=== PATIENT | male | born 1960 | race Caucasian/White ===

== ENCOUNTER 2016-08-07 19:30 | Emergency (ER) | payer OTHER ==
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
[~2016-08-07 19:30] MED LIST: HALDOL PO; LEVAQUIN PO; LEVAQUIN750 MG PO; MULTI-DAY1 TAB PO; NORCO 10-325 TA1 TAB PO; NORCO1 TAB 10/3 PO; PRILOSEC20 MG PO; ZOFRAN PO; ZYVOX600 MG PO
[2016-08-07 19:47] LABS: BASOPHIL% 0.2 % (0-2.5); EOSINOPHIL# 0.1 X10e3 (0-0.7); EOSINOPHIL% 1.5 % (0.0-7.0); HEMATOCRIT 46.4 % (38.0-50.0); HEMOGLOBIN 15.8 gm/dL (13.0-16.0); LYMPHOCYTE# 3.9 X10e3 (1.0-3.5); LYMPHOCYTE% 46.6 % (17.0-45.0); MEAN CELL VOLUME 99.9 FL (83-96); MEAN PLATELET VOLUME 8.7 FL (6.5-11.5); MONOCYTE# 0.6 X10e3 (0-1.0); MONOCYTE% 7.6 % (3.0-12.0); NEUTROPHIL# 3.7 X10e3 (1.5-7.1); NEUTROPHIL% 44.1 % (40-75); PLATELET COUNT 188 X10e3 (140-420); RED BLOOD COUNT 4.64 X10e (3.90-5.60); RED CELL DISTRIBUTION WIDTH 14.5 % (11.0-15.5); WHITE BLOOD COUNT 8.4 X10e3 (4.0-10.5)
[2016-08-07 19:48] LABS: POC - CKMB 7.4 ng/mL (0.0-7.9); POC - TROPONIN <0.05 ng/mL (<=0.05)
[2016-08-07 19:49] LABS: DIFF IND NO
[2016-08-07 20:03] LABS: INR 1.1; PROTHROMBIN TIME (PATIENT) 11.7 SECONDS (9.6-11.5)
[2016-08-07 20:32] LABS: ALBUMIN SERUM 3.7 g/dL (3.5-5.0); ALKALINE PHOSPHATASE 145 U/L (32-92); ALT (SGPT) 237 U/L (10-40); AST (SGOT) 320 U/L (10-42); BILIRUBIN, DIRECT 0.3 mg/dL (0.0-0.2); BILIRUBIN,INDIRECT 0.6 mg/dL (0.0-0.9); BILIRUBIN,TOTAL 0.9 mg/dL (0.2-2.0); BLOOD UREA NITROGEN 9 mg/dL (9-23); CALCIUM SERUM 8.6 mg/dL (8.4-10.2); CARBON DIOXIDE 26 mmol/L (22-31); CHLORIDE 111 mmol/L (100-111); GLOM FILT RATE Estimated ABOVE60 mL/min (>60); GLUCOSE FASTING 85 mg/dL (70-110); POTASSIUM 3.9 mmol/L (3.5-5.1); PROTEIN TOTAL SERUM 8.9 g/dL (6.0-8.3); SODIUM 145 mmol/L (135-145)
[2016-08-07 20:35] LABS: ALCOHOL BLOOD 303 mg/dL (0)
[2016-08-07 20:42] LABS: AMPHETAMINE NEG (NEG); BARBITURATES NEG (NEG); BENZODIAZEPINES NEG (NEG); COCAINE POS (NEG); MARIJUANA NEG (NEG); OPIATES NEG (NEG); TRICYCLIC ANTIDEPRESSANTS NEG (NEG); U METHADONE NEG (NEG)
== END 2016-08-08 03:35 | disposition home or self-care (01) ==
LOC: CED 19:30
PROVIDERS: Emergency Medicine
DX: F10.129 Alcohol abuse with intoxication, unspecified (principal); S00.83XA Contusion of other part of head, initial encounter
CPT/HCPCS: 36415; 70450; 70486; 71010; 72125; 72170; 80048; 80076; 80307; 82553; 82947; 84484; 85025; 85610; 90471; 90715; 99283; 99284; G0480; J3411; J3475

== ENCOUNTER 2016-09-19 21:51 | Emergency (ER) | payer OTHER ==
--- NOTE | ~2016-09-19 | EKG ---
PATIENT: JOHANNA AKBAR UNIT #: [id number] Ventricular Rate: 53 BPM Atrial Rate: 53 BPM P-R Interval: 170 ms QRS Duration: 128 ms Q-T Interval: 422 ms QTC Calculation(Bezet): 395 ms P [place]: 64 degrees Calculated R [place]: 10 degrees Calculated T [place]: 10 degrees Diagnosis Line: Sinus bradycardia Diagnosis Line: Normal ECG Diagnosis Line: When compared with ECG of 18-JUL-2016 21:59, Diagnosis Line: No significant change was found Diagnosis Line: Confirmed by JOSE FRANCISCO FREEDMAN MD ([id number]) on 09/20/2016 Diagnosis Line: 6:33:59 AM INTERPRETING MD: TANO JETER
[2016-09-19 20:10] LABS: BASOPHIL% 0.4 % (0-2.5); EOSINOPHIL% 0.7 % (0.0-7.0); HEMATOCRIT 40.3 % (38.0-50.0); HEMOGLOBIN 13.3 gm/dL (13.0-16.0); LYMPHOCYTE# 2.7 X10e3 (1.0-3.5); LYMPHOCYTE% 44.7 % (17.0-45.0); MEAN CELL VOLUME 101.8 FL (83-96); MEAN CORPUSCULAR HEMOGLOBIN 33.6 PG (28-34); MEAN PLATELET VOLUME 8.9 FL (6.5-11.5); MONOCYTE# 0.7 X10e3 (0-1.0); MONOCYTE% 11.2 % (3.0-12.0); NEUTROPHIL# 2.6 X10e3 (1.5-7.1); PLATELET COUNT 105 X10e3 (140-420); RED BLOOD COUNT 3.96 X10e (3.90-5.60); RED CELL DISTRIBUTION WIDTH 15.6 % (11.0-15.5)
[2016-09-19 20:11] LABS: DIFF IND NO
[2016-09-19 20:47] LABS: ALBUMIN SERUM 3.5 g/dL (3.5-5.0); BILIRUBIN, DIRECT 0.4 mg/dL (0.0-0.2); BILIRUBIN,INDIRECT 0.5 mg/dL (0.0-0.9); BILIRUBIN,TOTAL 0.9 mg/dL (0.2-2.0); BUN/CREATININE RATIO 13.75; CALCIUM SERUM 8.5 mg/dL (8.4-10.2); CREATININE SERUM 0.8 mg/dL (0.6-1.4); GLOM FILT RATE Estimated 101.3 mL/min (>60); POTASSIUM 3.8 mmol/L (3.5-5.1); PROTEIN TOTAL SERUM 7.9 g/dL (6.0-8.3)
[2016-09-19 21:01] LABS: URINE SOURCE CLEAN CATCH
[2016-09-19 21:12] LABS: URINE APPEARANCE CLEAR; URINE BILIRUBIN NEG (NEG); URINE BLOOD NEG (NEG); URINE COLOR YELLOW; URINE GLUCOSE NEG (NEG); URINE KETONE NEG (NEG); URINE LEUKOCYTE ESTERASE NEG (NEG); URINE NITRATE NEG (NEG); URINE PH 5.5 (5-8); URINE PROTEIN NEG (NEG); URINE SPECIFIC GRAVITY 1.003 (1.003-1.035)
[2016-09-19 21:16] LABS: CULTURE INDICATED? NO
[2016-09-19 21:21] LABS: AMPHETAMINE NEG (NEG); BARBITURATES NEG (NEG); BENZODIAZEPINES NEG (NEG); COCAINE NEG (NEG); MARIJUANA NEG (NEG); OPIATES NEG (NEG); TRICYCLIC ANTIDEPRESSANTS NEG (NEG); U METHADONE NEG (NEG)
== END 2016-09-20 07:57 | disposition home or self-care (01) ==
LOC: CED 21:51
PROVIDERS: Emergency Medicine
DX: F10.129 Alcohol abuse with intoxication, unspecified (principal); K70.10 Alcoholic hepatitis without ascites; F31.9 Bipolar disorder, unspecified; Z79.899 Other long term (current) drug therapy; Y90.8 Blood alcohol level of 240 mg/100 ml or more
CPT/HCPCS: 36415; 80048; 80076; 80307; 81003; 82947; 85025; 93005; 96361; 96374; 99284; G0480; J2310

== ENCOUNTER 2016-10-01 20:42 | Emergency (ER) | payer OTHER ==
--- NOTE | ~2016-10-01 | EKG ---
PATIENT: JOHANNA AKBAR UNIT #: [id number] Ventricular Rate: 49 BPM Atrial Rate: 49 BPM P-R Interval: 162 ms QRS Duration: 120 ms Q-T Interval: 454 ms QTC Calculation(Bezet): 410 ms P [place]: 66 degrees Calculated R [place]: 12 degrees Calculated T [place]: 14 degrees Diagnosis Line: Sinus bradycardia Diagnosis Line: Borderline ECG Diagnosis Line: When compared with ECG of 19-SEP-2016 19:30, Diagnosis Line: No significant change was found Diagnosis Line: Confirmed by JOSE FRANCISCO FREEDMAN MD ([id number]) on 10/02/2016 Diagnosis Line: 10:36:30 PM INTERPRETING MD: TANO JETER
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
[2016-10-01 21:02] LABS: BASOPHIL% 0.9 % (0-2.5); EOSINOPHIL% 0.9 % (0.0-7.0); HEMATOCRIT 41.5 % (38.0-50.0); HEMOGLOBIN 13.8 gm/dL (13.0-16.0); LYMPHOCYTE# 1.8 X10e3 (1.0-3.5); LYMPHOCYTE% 34.2 % (17.0-45.0); MEAN CORPUSCULAR HEMOGLOBIN 33.8 PG (28-34); MEAN CORPUSCULAR HGB CONC 33.1 g/dL (30-36); MEAN PLATELET VOLUME 8.3 FL (6.5-11.5); MONOCYTE# 0.7 X10e3 (0-1.0); MONOCYTE% 12.7 % (3.0-12.0); NEUTROPHIL# 2.7 X10e3 (1.5-7.1); NEUTROPHIL% 51.3 % (40-75); PLATELET COUNT 143 X10e3 (140-420); RED BLOOD COUNT 4.07 X10e (3.90-5.60); RED CELL DISTRIBUTION WIDTH 15.9 % (11.0-15.5); WHITE BLOOD COUNT 5.2 X10e3 (4.0-10.5)
[2016-10-01 21:03] LABS: DIFF IND NO
[2016-10-01 21:30] LABS: ALBUMIN SERUM 3.4 g/dL (3.5-5.0); BILIRUBIN, DIRECT 0.7 mg/dL (0.0-0.2); BILIRUBIN,INDIRECT 0.6 mg/dL (0.0-0.9); BILIRUBIN,TOTAL 1.3 mg/dL (0.2-2.0)
[2016-10-01 21:39] LABS: AMPHETAMINE NEG (NEG); BARBITURATES NEG (NEG); BENZODIAZEPINES NEG (NEG); COCAINE NEG (NEG); MARIJUANA NEG (NEG); OPIATES NEG (NEG); TRICYCLIC ANTIDEPRESSANTS NEG (NEG); U METHADONE NEG (NEG)
[2016-10-01 22:49] LABS: CALCIUM SERUM 8.5 mg/dL (8.4-10.2); CREATININE SERUM 1.1 mg/dL (0.6-1.4); GLOM FILT RATE Estimated 75.7 mL/min (>60); POTASSIUM 3.7 mmol/L (3.5-5.1)
== END 2016-10-02 06:42 ==
LOC: CED 20:42
PROVIDERS: Emergency Medicine
DX: S00.81XA Abrasion of other part of head, initial encounter (principal); F10.129 Alcohol abuse with intoxication, unspecified; R45.851 Suicidal ideations; I10 Essential (primary) hypertension; J44.9 Chronic obstructive pulmonary disease, unspecified; F17.200 Nicotine dependence, unspecified, uncomplicated; X58.XXXA Exposure to other specified factors, initial encounter; Y92.89 Other specified places as the place of occurrence of the external cause
CPT/HCPCS: 36415; 70450; 72125; 80048; 80076; 80307; 83690; 85025; 93005; 96360; 99284; G0480

== ENCOUNTER 2016-10-02 07:34 | Inpatient (IN) | payer MEDICARE, OTHER ==
--- NOTE | ~2016-10-02 | PN ---
Unit #: [id number] #: [id number] Patient: JOHANNA KEATING [id number] [facility] [address] [place] [address] [id number] I MR#: [id number] NAME: JOHANNA KEATING ROOM: P214 Age: 56 Sex: M Admission Date: 10/02/2016 : 1960 Attending Physician: Js Smith M.D. Admitting Physician: Js Smith M.D. Primary Care Physician: Primary Care Physician Harriet POPE PROGRESS NOTES DATE OF SERVICE 10/06/2016 DISCUSSION Mr. Keating is a 56-year-old white male who was seen today. Chart was reviewed and case was discussed with the staff. He has been anxious though appears to be doing better and seems to be coming out of the detox without any complications. He has been polite and pleasant and cooperative with treatment recommendations and has been taking the medications and tolerating them fairly well. MENTAL STATUS EXAMINATION Middle-aged white male who is casually dressed with fair personal hygiene, appears to be in no acute distress or discomfort. He was awake and alert on interaction with intact orientation. His mood is anxious with congruent affect. He denies any suicidal or homicidal ideations. His insight and judgment remain slightly impaired. TREATMENT PLAN 1. We will continue him on his current medications and treatment protocol. We will monitor his response to the medications and make further adjustments as needed. 2. We will continue to follow up. Dictated by... Js Smith M.D. IAA/bzg TD: 10/07/2016 11:45 JOB #: [id number] Unit #: [id number] #: [id number] Patient: JOHANNA KEATING TOSHIA PROGRESS NOTES Page 1 of 1 X Js Smith MD PROGRESS NOTE
--- NOTE | ~2016-10-02 | DS ---
Unit #: [id number] #: [id number] [facility]: [facility]ATING [id number] [facility] [address] [place] [address] [id number] I MR#: [id number] NAME: JOHANNA KEATING ROOM: [facility] Age: 56 Sex: M Admission Date: 10/02/2016 : 1960 Discharge Date: 10/08/2016 Attending Physician: Js Smith M.D. Primary Care Physician: Primary Care Physician No DISCHARGE SUMMARY IDENTIFYING DATA Mr. Keating is a 56-year-old single white male, who is a resident [place], [place], and is known to us from previous encounter and was self-referred to the hospital on a voluntary basis. DISCHARGE DIAGNOSES Psychiatric: Major depressive disorder, recurrent, moderate, without psychotic features; alcohol dependence, moderate and acute withdrawals; opioid dependence, moderate. Medical: Hypertension. Stressors: Moderate psychosocial stressors. HISTORY OF PRESENT ILLNESS Please see initial psychiatric evaluation for details. PAST PSYCHIATRIC HISTORY Please see initial psychiatric evaluation for details. PAST MEDICAL HISTORY Please see initial psychiatric evaluation for details. HOSPITAL COURSE The patient was admitted to the adult chemical dependency unit at [facility] yaritza Rudolph and was oriented to the hospital environment. Routine p.r.n. medications were initiated, and he was started on the detox protocol and was closely monitored. He was taking the medications regularly and was tolerating them fairly well and was able to show a decent and therapeutic response and was willing to continue treatment on an outpatient basis and as such, it was decided that he will be discharged home and will continue treatment on an outpatient basis. DISCHARGE MEDICATIONS None. DISCHARGE CONDITION Stable. PROGNOSIS Fair. Dictated by... Js Smith M.D. Unit #: [id number] #: [id number] Patient: JOHANNA KEATING IAA/modl TD: 10/08/2016 22:52 JOB #: [id number] DISCHARGE SUMMARY Page 1 of 1 X Js Smith MD DISCHARGE SUMMARY
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
--- NOTE | ~2016-10-02 | PN ---
Unit #: [id number] #: [id number] Patient: JOHANNA KEATING [id number] [facility] [address] [place] [address] [id number] I MR#: [id number] NAME: JOHANNA KEATING ROOM: P214 Age: 56 Sex: M Admission Date: 10/02/2016 : 1960 Attending Physician: Js Smith M.D. Admitting Physician: Js Smith M.D. Primary Care Physician: Primary Care Physician Harriet LOPEZ NOTES DATE OF SERVICE 10/03/2016 DISCUSSION Mr. Keating is a 56-year-old white male who was seen today. Chart was reviewed and case was discussed with the staff. He has been anxious, withdrawn, and seclusive to himself and was seen to be unkempt, disheveled, and reports persistent depressive symptoms with feelings of hopelessness. Meanwhile, he has been taking the medications and tolerating them fairly well with no reported side effects. MENTAL STATUS EXAMINATION Middle-aged white male who was casually dressed with fair personal hygiene, appears to be in no acute distress or discomfort. He was awake and alert on interaction with intact orientation. His mood was anxious with congruent affect. His speech is slow and goal-directed. He denies any suicidal or homicidal ideations and also denies any auditory or visual hallucinations. His insight and judgment remain slightly impaired. TREATMENT PLAN 1. We will continue him on his current medications and treatment protocol. We will monitor his response to the medications and make further adjustments as needed. 2. We will continue to follow up. Dictated by... Charity Poe/lyle TD: 10/04/2016 11:04 JOB #: [id number] Unit #: [id number] #: [id number] Patient: JOHANNA KEATING [place] LOPEZ NOTES Page 1 of 1 X Js Smith MD PROGRESS NOTE
--- NOTE | ~2016-10-02 | PN ---
Unit #: [id number] #: [id number] Patient: JOHANNA KEATING [id number] [facility] [address] [place] [address] [id number] I MR#: [id number] NAME: JOHANNA KEATING ROOM: P214 Age: 56 Sex: M Admission Date: 10/02/2016 : 1960 Attending Physician: Js Smith M.D. Admitting Physician: Js Smith M.D. Primary Care Physician: Primary Care Physician Harriet POPE PROGRESS NOTES DATE OF SERVICE: 10/05/2016 SUBJECTIVE Mr. Keating is a 56-year-old white male who was seen today and chart was reviewed, and case was discussed with the staff. He has been anxious, withdrawn, and rather seclusive to himself. Meanwhile, he has been cooperative with treatment recommendations and has been taking the medications and tolerating them fairly well. MENTAL STATUS EXAMINATION Middle-aged white male who was casually dressed with fair personal hygiene, appears to be in no acute distress or discomfort. He was awake and alert on interaction with intact orientation. His mood was anxious with a congruent affect. He denies any suicidal or homicidal ideation. His insight and judgment remain slightly impaired. TREATMENT PLAN 1. We will continue him on his current medications and treatment protocol. We will monitor his response to medications and make further adjustments as needed. 2. We will continue to follow up. Dictated by... Charity Poe/felecial TD: 10/06/2016 13:10 JOB #: [id number] [facility] PROGRESS NOTES Page 1 of 1 X Js Smith MD PROGRESS NOTE
--- NOTE | ~2016-10-02 | HP ---
Unit #: [id number] #: [id number] Patient: JOHANNA AKBAR [id number] [facility] [address] [place] [address] [id number] MR#: [id number] NAME: JOHANNA AKBAR ROOM: P214 Age: 56 Sex: M Admission Date: 10/02/2016 : 1960 Attending Physician: Js Smith M.D. Admitting Physician: Js Smith M.D. Primary Care Physician: Primary Care Physician No HISTORY AND PHYSICAL HISTORY OF PRESENT ILLNESS Johanna is a 56 year old, admitted to [address] [place] [address] because of his continued abuse of alcohol. He has had numerous admissions to this facility for the same. PAST MEDICAL HISTORY 1. Long history of polysubstance abuse to include alcohol and IV drugs. 2. History of withdrawal seizures. 3. Hepatitis C. 4. High blood pressure. 5. Hyperlipidemia. PAST SURGICAL HISTORY Right knee. ALLERGIES No known drug allergies. SOCIAL HISTORY He does not smoke, drinks alcohol frequently and has a long history of illicit substance abuse to include IV drugs. FAMILY HISTORY Medically noncontributory. REVIEW OF SYSTEMS CONSTITUTIONAL: No fever or chills. HEENT: Denies any sore throat, ear pain or runny nose. CARDIOVASCULAR: Denies chest pain, irregular heart rhythm or palpitations. CHEST: Denies shortness of breath or cough. No hemoptysis. GASTROINTESTINAL: Denies nausea, vomiting, diarrhea or chronic constipation. ENDOCRINE: Denies history of increased thirst or urination. No recent significant weight loss or gain. GENITOURINARY: Denies dysuria, frequency, or hematuria. SKIN: Denies any rashes. HEMATOLOGIC: Denies history of increased bleeding or bruising. MUSCULOSKELETAL: Denies any hot, swollen joints. No generalized muscle pain. NEUROLOGIC: Denies problems with vision or speech. No frequent, severe headaches. No numbness, tingling or weakness in any extremities. Denies loss of bladder or bowel control. CURRENT MEDICATIONS Unit #: [id number] #: [id number] Patient: JOHANNA AKBAR 1. Milk of magnesia p.r.n. 2. Maalox p.r.n. 3. Tylenol p.r.n. 4. Multivitamin one daily 5. Nicotine patch 14 mg daily 6. Protonix 40 mg daily PHYSICAL EXAMINATION GENERAL: Alert, well-nourished, no apparent distress. VITAL SIGNS: Blood pressure 110/52, heart rate 80, respirations 16, and temperature 98.6. WEIGHT: 215 pounds. HEIGHT: 5 feet 7 inches. SKIN: Warm and dry without rash or lesion. HEENT: Normocephalic. TMs not viewed. Oral and nasal passages clear. Conjunctivae clear. PERRLA. EOMs intact. NECK: Supple without lymphadenopathy or thyromegaly. HEART: Regular rate and rhythm without murmur. LUNGS: Clear. ABDOMEN: Soft, nontender. : Not done. EXTREMITIES: No evidence of cyanosis, clubbing or edema. Moves all without focal deficit. NEUROLOGICAL: Grossly within normal limits. Cranial Nerves: II: Visual pantoja are intact. III, IV AND : Extraocular movements are intact. Pupils are equal, round and reactive to light. V: Facial sensation is grossly normal. VII: Facial movements and expression are normal. VIII: Auditory acuity grossly intact. IX, X: Uvula is midline. Phonation is normal. XI: Patient shrugs shoulders and turns head normally. XII: Tongue protrudes in the midline. Sensory and Motor Function: Sensory and motor sensation is grossly normal. Motor: moves all extremities well. Coordination: Gait is normal. Deep Tendon Reflexes: Intact. IMPRESSION Psychiatric admission. RECOMMENDATIONS Psychiatric, per psychiatrist. MEDICAL I see no contraindications to participating in facility's activities. MEDICAL PROGNOSIS Good. MEDICAL CONDITION Stable. Dictated by... Claudette Brower P.A.-C. for Charity Carroll/juma Unit #: [id number] #: [id number] Patient: JOHANNA AKBAR TD: 10/03/2016 06:23 JOB #: [id number] HISTORY AND PHYSICAL Page 1 of 1 X Claudette Brower HISTORY AND PHYSICAL
--- NOTE | ~2016-10-02 | PN ---
Unit #: [id number] #: [id number] Patient: JOHANNA KEATING [id number] [facility] [address] [place] [address] [id number] MR#: [id number] NAME: JOHANNA KEATING ROOM: P214 Age: 56 Sex: M Admission Date: 10/02/2016 : 1960 Attending Physician: Js Smith M.D. Admitting Physician: Js Smith M.D. Primary Care Physician: Primary Care Physician Harriet POPE PROGRESS NOTES DATE 10/03/2016 DISCUSSION Mr. Keating is a 56-year-old white male who was seen today and chart was reviewed and case was discussed with the staff. He has been anxious, withdrawn and rather seclusive to himself. Meanwhile, he has been cooperative with treatment recommendations and has been taking medications and tolerating them fairly well with no reported side effects. MENTAL STATUS EXAMINATION Middle-aged white male who was casually dressed with fair personal hygiene and appears to be in no acute distress or discomfort. He was awake and alert on interaction with intact orientation. His mood was anxious with congruent affect. He denies any suicidal or homicidal ideations. His insight and judgement remains slightly impaired. TREATMENT PLAN 1. Will continue his current treatment protocol and will monitor his response to the medications and make further adjustments as needed. 2. Will continue to follow up. Dictated by... Charity Poe/venkatesh TD: 10/03/2016 18:32 JOB #: [id number] Unit #: [id number] #: [id number] Patient: JOHANNA KEATING [place] PROGRESS NOTES Page 1 of 1 X Js Smith MD X PROGRESS NOTE
--- NOTE | ~2016-10-02 | CO ---
Unit #: [id number] #: [id number] Patient: JOHANNA AKBAR [id number] [facility] [address] [place] [address] [id number] I MR#: [id number] NAME: JOHANNA AKBAR ROOM: [facility] Age: 56 Sex: M Admission Date: 10/02/2016 : 1960 Attending Physician: Js Smith M.D. Primary Care Physician: Primary Care Physician No Consultation Date: 10/06/2016 CONSULTATION REPORT Medical consult was requested by Dr. Smith. HISTORY OF PRESENT ILLNESS Johanna has complaints of sores on his left and right feet on the tops of his toes, balls of his feet that he first noticed a few weeks ago. He is homeless and has very poor fitting shoes. He reports having multiple holes in his shoes. His shoes are frequently wet. No pain or other complaints. PHYSICAL EXAMINATION CARDIAC: Regular rate and rhythm. No murmurs, gallops, or rubs. RESPIRATORY: Clear to auscultation bilaterally. SKIN: Multiple 5 mm to 1 cm abrasions on toes in various stages of healing. ASSESSMENT AND PLAN Skin abrasions. These abrasions most likely caused by poor fitting shoes. The patient was instructed to keep feet very clean and dry, and we will begin bacitracin ointment t.i.d. 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 Dictated by... Natacha Vergara A.P.R.N. for Charity Carroll/lj TD: 10/06/2016 18:36 JOB #: [id number] CONSULTATION REPORT Page 1 of 1 X NATACHA ORTEGA APRN CONSULTATION REPORT
--- NOTE | ~2016-10-02 | PN ---
Unit #: [id number] #: [id number] Patient: JOHANNA KEATING [id number] [facility] [address] [place] [address] [id number] I MR#: [id number] NAME: JOHANNA KEATING ROOM: P214 Age: 56 Sex: M Admission Date: 10/02/2016 : 1960 Attending Physician: Js Smith M.D. Admitting Physician: Js Smith M.D. Primary Care Physician: Primary Care Physician Harriet POPE PROGRESS NOTES DATE October 07, 2016 DISCUSSION Mr. Kaeting is a 56-year-old white male, who was seen today and chart was reviewed and the case was discussed with the staff. He has been anxious, withdrawn, but has not shown any agitation or irritability, and he has been cooperative with the treatment recommendations. He has been taking the medications and tolerating them fairly well with no reported side effects. MENTAL STATUS EXAMINATION Middle-aged white male, who was casually dressed with fair personal hygiene and appears to be in no acute distress or discomfort. He was awake and alert on interaction with intact orientation. His mood is anxious with a congruent affect. His speech is slow and goal-directed. He denies any suicidal or homicidal ideations. His insight and judgment remain slightly impaired. TREATMENT PLAN 1. We will continue him on his current medications and treatment protocol, and will monitor his response to the medications, and make further adjustments as needed. 2. We will continue to followup. Dictated by... Charity Poe/juma TD: 10/08/2016 05:25 JOB #: [id number] Unit #: [id number] #: [id number] Patient: JOHANNA KEATING PROGRESS NOTES Page 1 of 1 X Js Smith MD PROGRESS NOTE
== END 2016-10-08 15:30 | disposition home or self-care (01) | DRG 885 ==
LOC: P1S 07:34 → P2S 13:51
PROC: HZ2ZZZZ Detoxification Services for Substance Abuse Treatment (ICD-10-PCS; principal; 2016-10-02)
DX: F33.1 Major depressive disorder, recurrent, moderate (principal); F11.20 Opioid dependence, uncomplicated; I10 Essential (primary) hypertension; F10.239 Alcohol dependence with withdrawal, unspecified; Z59.0 Homelessness; E78.5 Hyperlipidemia, unspecified; B19.20 Unspecified viral hepatitis C without hepatic coma; S90.812A Abrasion, left foot, initial encounter; S90.811A Abrasion, right foot, initial encounter
CPT/HCPCS: 86592

== ENCOUNTER 2016-10-16 21:03 | Emergency (ER) | payer SELFPAY | END 2016-10-17 03:06 | disposition home or self-care (01) | LOC: CED 21:03 | DX: F10.129 Alcohol abuse with intoxication, unspecified (principal); J44.9 Chronic obstructive pulmonary disease, unspecified; F17.200 Nicotine dependence, unspecified, uncomplicated | CPT/HCPCS: 99282 ==

== ENCOUNTER 2016-11-12 22:48 | Emergency (ER) | payer SELFPAY | END 2016-11-13 07:57 | disposition home or self-care (01) | LOC: CED 22:48 | DX: F10.129 Alcohol abuse with intoxication, unspecified (principal) | CPT/HCPCS: 99283; G0480 ==

== ENCOUNTER 2016-12-01 16:35 | Emergency (ER) | payer SELFPAY | END 2016-12-01 19:00 | disposition left against medical advice (07) | LOC: CED 16:35 | DX: Z53.21 Procedure and treatment not carried out due to patient leaving prior to being seen by health care provider (principal) ==

== ENCOUNTER 2016-12-02 23:22 | Emergency (ER) | payer SELFPAY ==
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
== END 2016-12-03 07:08 | disposition home or self-care (01) ==
LOC: CED 23:22
DX: S06.0X9A Concussion with loss of consciousness of unspecified duration, initial encounter (principal); I10 Essential (primary) hypertension; F17.200 Nicotine dependence, unspecified, uncomplicated; W22.8XXA Striking against or struck by other objects, initial encounter; Y93.89 Activity, other specified; Y92.410 Unspecified street and highway as the place of occurrence of the external cause
CPT/HCPCS: 36415; 70450; 70486; 72125; 99284; G0480

== ENCOUNTER 2016-12-10 23:13 | Emergency (ER) | payer SELFPAY | END 2016-12-11 16:10 | disposition HOOLOP | LOC: CED 23:13 | DX: F10.229 Alcohol dependence with intoxication, unspecified (principal); Y90.8 Blood alcohol level of 240 mg/100 ml or more; F33.9 Major depressive disorder, recurrent, unspecified; I10 Essential (primary) hypertension; J44.9 Chronic obstructive pulmonary disease, unspecified; F17.200 Nicotine dependence, unspecified, uncomplicated | CPT/HCPCS: 36415; 99285; G0480 ==

== ENCOUNTER 2016-12-11 11:02 | Inpatient (IN) | payer MEDICARE ==
--- NOTE | ~2016-12-11 | PN ---
Unit #: [id number] #: [id number] Patient: JOHANNA KEATING [id number] [facility] [address] [place] [address] [id number] I MR#: [id number] NAME: JOHANNA KEATING ROOM: [facility] Age: 56 Sex: M Admission Date: 12/11/2016 : 1960 Attending Physician: Js Smith M.D. Admitting Physician: Js Smith M.D. Primary Care Physician: Primary Care Physician Harriet POPE PROGRESS NOTES DATE December 15, 2016 DISCUSSION Mr. Keating is a 56-year-old white male, who was seen today and chart was reviewed and the case was discussed with the staff. He has been anxious, withdrawn, and rather seclusive to himself. Meanwhile, he has been cooperative with the treatment recommendations and he has been taking the medications and tolerating them fairly well with no reported side effects. MENTAL STATUS EXAMINATION Middle-aged white male, who was casually dressed with fair personal hygiene and appears to be in no acute distress or discomfort. He was awake and alert with intact orientation. His mood is anxious with a congruent affect. He denies any suicidal or homicidal ideations. His insight and judgment remain slightly impaired. TREATMENT PLAN 1. We will continue him on his current treatment protocol, and will monitor his response to the medications, and make further adjustments as needed. 2. We will continue to followup. Dictated by... Charity Poe/juma TD: 12/16/2016 09:31 JOB #: [id number] Unit #: [id number] #: [id number] Patient: JOHANNA KEATING KAYDAVID PROGRESS NOTES Page 1 of 1 X Js Smith MD X PROGRESS NOTE
--- NOTE | ~2016-12-11 | HP ---
Unit #: [id number] #: [id number] Patient: JOHANNA AKBAR [id number] [place] [address] [id number] I MR#: [id number] NAME: JOHANNA AKBAR ROOM: 86 Age: 56 Sex: M Admission Date: 12/11/2016 : 1960 Attending Physician: Js Smith M.D. Admitting Physician: Js Smith M.D. Primary Care Physician: Primary Care Physician No HISTORY AND PHYSICAL HISTORY OF PRESENT ILLNESS Johanna is a 56 year old admitted to [facility] because of his continued polysubstance abuse. PAST MEDICAL HISTORY 1. Long history of illicit substance abuse to include IV drugs. 2. Alcohol abuse. 3. History of withdrawal seizures. 4. Hepatitis C. 5. High blood pressure. 6. Hyperlipidemia. PAST SURGICAL HISTORY 1. Right knee. 2. 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 ALLERGIES No known drug allergies. SOCIAL HISTORY He does not smoke. Drinks alcohol frequently, has a long history of illicit substance abuse to include IV drugs. FAMILY HISTORY Medically noncontributory. REVIEW OF SYSTEMS CONSTITUTIONAL: No fever or chills. HEENT: Denies any sore throat, ear pain or runny nose. CARDIOVASCULAR: Denies chest pain, irregular heart rhythm or palpitations. CHEST: Denies shortness of breath or cough. No hemoptysis. GASTROINTESTINAL: Denies nausea, vomiting, diarrhea or chronic constipation. ENDOCRINE: Denies history of increased thirst or urination. No recent significant weight loss or gain. GENITOURINARY: Denies dysuria, frequency, or hematuria. SKIN: Denies any rashes. HEMATOLOGIC: Denies history of increased bleeding or bruising. MUSCULOSKELETAL: Denies any hot, swollen joints. No generalized muscle pain. NEUROLOGIC: Denies problems with vision or speech. No frequent, severe headaches. No numbness, tingling or weakness in any extremities. Denies loss of bladder or bowel control. Unit #: [id number] #: [id number] Patient: JOHANNA AKBAR CURRENT MEDICATIONS 1. Desyrel 100 mg q.h.s. 2. Milk of Magnesia p.r.n. 3. Maalox p.r.n. 4. Tylenol p.r.n. 5. Multivitamin 1 daily. PHYSICAL EXAMINATION GENERAL: Alert, appearing much older than his stated age of 56, in no apparent distress. VITAL SIGNS: Blood pressure 120/74, heart rate 80, respirations 16, temperature 98.6. WEIGHT: 175. HEIGHT: 5 feet 7 inches. SKIN: Warm and dry without rash. He has a scab along his forehead. The scab is sloughing and there is no increased redness, swelling, heat or pus noted. HEENT: Normocephalic. TMs not viewed. Oral and nasal passages clear. Conjunctivae clear. PERRLA. EOMs intact. NECK: Supple without lymphadenopathy or thyromegaly. HEART: Regular rate and rhythm without murmur. LUNGS: Clear. ABDOMEN: Soft, nontender. : Not done. EXTREMITIES: No evidence of cyanosis, clubbing or edema. Moves all without focal deficit. NEUROLOGICAL: Grossly within normal limits. Cranial Nerves: II: Visual pantoja are intact. III, IV AND : Extraocular movements are intact. Pupils are equal, round and reactive to light. V: Facial sensation is grossly normal. VII: Facial movements and expression are normal. VIII: Auditory acuity grossly intact. IX, X: Uvula is midline. Phonation is normal. XI: Patient shrugs shoulders and turns head normally. XII: Tongue protrudes in the midline. Sensory and Motor Function: Sensory and motor sensation is grossly normal. Motor: moves all extremities well. Coordination: Gait is normal. Deep Tendon Reflexes: Intact. IMPRESSION Psychiatric admission. RECOMMENDATIONS PSYCHIATRIC: Per psychiatrist. MEDICAL: See no contraindication to participate in facility's activities. MEDICAL PROGNOSIS Good. MEDICAL CONDITION Stable. Dictated by... Claudette Brower P.A.-C. for Unit #: [id number] #: [id number] Patient: JOHANNA AKBAR Charity Carroll/venkatesh TD: 12/12/2016 20:59 JOB #: [id number] HISTORY AND PHYSICAL Page 1 of 1 X Claudette Brower HISTORY AND PHYSICAL
--- NOTE | ~2016-12-11 | PA ---
Unit #: [id number] #: [id number] Patient: [facility] KEATING [id number] [facility] [address] [place] [address] [id number] I MR#: [id number] NAME: JOHANNA KEATING ROOM: P186 Age: 56 Sex: M Admission Date: 12/11/2016 : 1960 Date of Assessment: 12/12/2016 Attending Physician: Js Smith M.D. Admitting Physician: Js Smith M.D. Primary Care Physician: Primary Care Physician No PSYCHIATRIC ASSESSMENT DATE OF SERVICE 12/12/2016. IDENTIFYING DATA Mr. Keating is a 56-year-old single white male, who is a resident of [place], [place], and is known to us from previous multiple encounters and was transferred to us from [facility] on a voluntary basis. CHIEF COMPLAINT "I've been attempting suicide by running out in traffic." HISTORY OF PRESENT ILLNESS Mr. Keating is a 56-year-old white male with dual diagnosis of alcohol dependence and mood disorder, who took himself to the hospital via the police after being found passed out at [place]. According to the nurse, the patient reports that he was attempting suicide by running out in traffic and was found by police and brought to the emergency department and was still endorsing active suicidal ideations with plan to run into the traffic and reports being alcohol dependence and experiencing significant withdrawal symptoms where he reports drinking 24 12-ounce beers a day and reports that he abused alcohol consistently since he was 16 years old and was seen to be in significant distress and discomfort with increasing depression, anxiety, feelings of hopelessness and helplessness, and suicidal ideations and as such, recommendation for inpatient level of care for safety and stabilization was made and the patient was medically cleared and then transferred to us. SUBSTANCE ABUSE HISTORY The patient reports history of experimentation with cannabis and cocaine, but alcohol has been his drug of choice and reports that he has been drinking ever since he was 16 years old and currently has been drinking 24 beers a day. PAST PSYCHIATRIC HISTORY The patient has had history of multiple numerous inpatient psychiatric and chemical dependency treatment at [facility] and has been to [facility] for rehab level of care. However, currently he is not active in treatment program, is not seeing a psychiatrist, and is not taking any psychotropic medications. PAST MEDICAL HISTORY Hypertension and COPD. Unit #: [id number] #: [id number] Patient: JOHANNA KEATING ALLERGIES No known medication allergies. CURRENT MEDICATIONS None. PERSONAL AND SOCIAL HISTORY A 56-year-old white male, who reports that he is single, unemployed, homeless, and has poor social support system. MENTAL STATUS EXAMINATION Middle-aged white male who was casually dressed with fair personal hygiene, appears to be in no acute distress or discomfort. He was awake and alert on interaction with intact orientation to time, place, and person. His mood was anxious with a congruent affect. His speech was slow and restricted in content. He reports having suicidal ideations, but denies any homicidal ideations, and also denies any auditory or visual hallucinations. His insight and judgment remain significantly impaired. DIAGNOSTIC IMPRESSION Psychiatric: Alcohol dependence, moderate and acute withdrawals; alcohol-induced mood disorder. Medical: Chronic obstructive pulmonary disease and hypertension. Stressors: Moderate psychosocial stressors. TREATMENT PLAN 1. The patient has presented with history of mood disorder, and has been decompensating and will need inpatient hospitalization for detoxification, safety, and stabilization. We will start him back on his home medications and detox protocol for alcohol will be initiated as well. 2. Supportive therapy was provided to the patient. 3. Safe, structured, and nourishing environment will be provided. ESTIMATED LENGTH OF STAY 4 to 5 days. ABILITY TO HELP SELF Limited. WILLINGNESS TO HELP SELF The patient appears to be willing to help self. STRENGTHS 1. Communicative. 2. Cooperative. PROBLEMS 1. Chronic dysphoric symptoms. 2. Chronic chemical dependency. 3. Poor social support system. DISCHARGE CRITERIA This will be contingent upon the patient's ability to go through detox without having any significant withdrawal symptoms as well as his ability to stay safe to himself, particularly after discharge from the hospital. Dictated by... Unit #: [id number] #: [id number] Patient: JOHANNA KEATING Js Smith M.D. GORDON/lj TD: 12/12/2016 06:56 JOB #: [id number] PSYCHIATRIC ASSESSMENT Page 1 of 1 X Js Smith MD PSYCHIATRIC ASSESSMENT
--- NOTE | ~2016-12-11 | PN ---
Unit #: [id number] #: [id number] Patient: JOHANNA KEATING [id number] [facility] [address] [place] [address] [id number] I MR#: [id number] NAME: JOHANNA KEATING ROOM: [facility] Age: 56 Sex: M Admission Date: 12/11/2016 : 1960 Attending Physician: Js Smith M.D. Admitting Physician: Js Smith M.D. Primary Care Physician: Primary Care Physician Harriet LOPEZ NOTES DATE December 13, 2016 DISCUSSION Mr. Keating is a 56-year-old white male, who was seen today and chart was reviewed and the case was discussed with the staff. He has been anxious, withdrawn, and rather seclusive to himself. Meanwhile, he has been cooperative with the treatment recommendations and he has been taking the medications and tolerating them fairly well with no reported side effects. MENTAL STATUS EXAMINATION Middle-aged white male, who was casually dressed with fair personal hygiene and appears to be in no acute distress or discomfort. He was awake and alert on interaction with intact orientation. His mood is anxious with a congruent affect. He denies any suicidal or homicidal ideations. His insight and judgment remain slightly impaired. TREATMENT PLAN 1. We will continue him on his current medications and treatment protocol, and will monitor his response to the medications, and make further adjustments as needed. 2. We will continue to followup. Dictated by... Charity Poe/juma TD: 12/13/2016 09:38 JOB #: [id number] Unit #: [id number] #: [id number] Patient: JOHANNA KEATING TOSHIA PROGRESS NOTES Page 1 of 1 X Js Smith MD PROGRESS NOTE
--- NOTE | ~2016-12-11 | DS ---
Unit #: [id number] #: [id number] Patient: JOHANNA KEATING [id number] [facility] [address] [place] [address] [id number] I MR#: [id number] NAME: JOHANNA KEATING ROOM: [facility] Age: 56 Sex: M Admission Date: 12/11/2016 : 1960 Discharge Date: 12/16/2016 Attending Physician: Js Smith M.D. Primary Care Physician: Primary Care Physician No DISCHARGE SUMMARY IDENTIFYING DATA Mr. Keating is a 56-year-old single white male, who is a resident of [place], [place], and is known to us from previous multiple encounters and was transferred to us from [facility] on a voluntary basis. DISCHARGE DIAGNOSES Psychiatric: Alcohol dependence, moderate and acute withdrawals; alcohol-induced mood disorder. Medical: Chronic obstructive pulmonary disease and hypertension. Stressors: Mild psychosocial stressors. HISTORY OF PRESENT ILLNESS Please see initial psychiatric evaluation for details. PAST PSYCHIATRIC HISTORY Please see initial psychiatric evaluation for details. PAST MEDICAL HISTORY Please see initial psychiatric evaluation for details. HOSPITAL COURSE The patient was admitted to the adult chemical dependency unit at [facility] and was oriented to the hospital environment. Routine p.r.n. medications were initiated, and he was started back on his home medications. Medications were adjusted and he was closely monitored. He was taking medications regularly and was tolerating them fairly well and was able to show a decent and therapeutic response with improvement in depression and psychosis and as such, it was decided that he will be discharged home and will continue treatment on an outpatient basis. DISCHARGE MEDICATIONS None. DISCHARGE CONDITION Stable. PROGNOSIS Fair. Dictated by... Js Smith M.D. Unit #: [id number] #: [id number] Patient: JOHANNA KEATING IAA/modl TD: 12/16/2016 06:29 JOB #: [id number] DISCHARGE SUMMARY Page 1 of 1 X Js Smith MD X DISCHARGE SUMMARY
--- NOTE | ~2016-12-11 | PN ---
Unit #: [id number] #: [id number] Patient: JOHANNA KEATING [id number] [facility] [address] [place] [address] [id number] MR#: [id number] NAME: JOHANNA KEATING ROOM: [facility] Age: 56 Sex: M Admission Date: 12/11/2016 : 1960 Attending Physician: Js Smith M.D. Admitting Physician: Js Smith M.D. Primary Care Physician: Primary Care Physician Harriet POPE PROGRESS NOTES DATE 12/14/2016 DISCUSSION Mr. Keating is a 56-year-old, white male who was seen today and chart was reviewed and case was discussed with the staff. He has been doing fairly well and has been rather seclusive to himself and exhibiting persistent depressive symptoms. He has been taking medications and tolerating them fairly well with no reported side effects. MENTAL STATUS EXAM Middle-aged white male who was casually dressed with fair personal hygiene, appears to be in no acute distress or discomfort. He was awake and alert with intact orientation. His mood was anxious with congruent affect. He denies any suicidal or homicidal ideation. His insight and judgement remains slightly impaired. TREATMENT PLAN 1. We will continue him on his current medications and treatment protocol. We will monitor his response to the medication and make further adjustments as needed. 2. We will continue to follow up. Dictated by... Charity Poe/stan TD: 12/15/2016 02:57 JOB #: [id number] Unit #: [id number] #: [id number] Patient: JOHANNA KEATING TOSHIA PROGRESS NOTES Page 1 of 1 X Js Smith MD PROGRESS NOTE
[2016-12-12 09:56] LABS: BASOPHIL% 0.6 % (0-2.5); EOSINOPHIL# 0.1 X10e3 (0-0.7); EOSINOPHIL% 2.1 % (0.0-7.0); HEMATOCRIT 43.2 % (38.0-50.0); HEMOGLOBIN 14.3 gm/dL (13.0-16.0); LYMPHOCYTE# 1.2 X10e3 (1.0-3.5); LYMPHOCYTE% 25.6 % (17.0-45.0); MEAN CELL VOLUME 103.6 FL (83-96); MEAN CORPUSCULAR HEMOGLOBIN 34.3 PG (28-34); MEAN CORPUSCULAR HGB CONC 33.2 g/dL (30-36); MONOCYTE# 0.5 X10e3 (0-1.0); MONOCYTE% 10.1 % (3.0-12.0); NEUTROPHIL# 2.8 X10e3 (1.5-7.1); NEUTROPHIL% 61.6 % (40-75); PLATELET COUNT 108 X10e3 (140-420); RED BLOOD COUNT 4.17 X10e (3.90-5.60); RED CELL DISTRIBUTION WIDTH 14.2 % (11.0-15.5); WHITE BLOOD COUNT 4.6 X10e3 (4.0-10.5)
[2016-12-12 09:57] LABS: DIFF IND NO
[2016-12-12 10:02] LABS: ALBUMIN SERUM 3.2 g/dL (3.5-5.0); BILIRUBIN,TOTAL 1.6 mg/dL (0.2-2.0); BUN/CREATININE RATIO 16.25; CREATININE SERUM 0.8 mg/dL (0.6-1.4); GLOM FILT RATE Estimated 101.3 mL/min (>60); POTASSIUM 3.5 mmol/L (3.5-5.1); PROTEIN TOTAL SERUM 7.8 g/dL (6.0-8.3)
[2016-12-15 11:56] LABS: URINE APPEARANCE CLEAR; URINE BLOOD NEG (NEG); URINE COLOR DK YELLOW; URINE GLUCOSE NEG (NEG); URINE KETONE NEG (NEG); URINE LEUKOCYTE ESTERASE NEG (NEG); URINE NITRATE NEG (NEG); URINE PH 5.5 (5-8); URINE PROTEIN NEG (NEG); URINE SPECIFIC GRAVITY 1.027 (1.003-1.035)
[2016-12-15 12:09] LABS: URINE BILIRUBIN NEG (NEG)
[2016-12-15 12:28] LABS: AMPHETAMINE NEG (NEG); BARBITURATES NEG (NEG); BENZODIAZEPINES POS (NEG); COCAINE NEG (NEG); MARIJUANA NEG (NEG); OPIATES NEG (NEG); TRICYCLIC ANTIDEPRESSANTS NEG (NEG); U METHADONE NEG (NEG)
== END 2016-12-17 12:20 | disposition hospice, home (50) | DRG 897 ==
LOC: P1E 16:42
PROVIDERS: Psychiatry & Neurology Psychiatry
PROC: HZ2ZZZZ Detoxification Services for Substance Abuse Treatment (ICD-10-PCS; principal; 2016-12-11)
DX: F10.239 Alcohol dependence with withdrawal, unspecified (principal); F10.24 Alcohol dependence with alcohol-induced mood disorder; I10 Essential (primary) hypertension; J44.9 Chronic obstructive pulmonary disease, unspecified; E78.5 Hyperlipidemia, unspecified
CPT/HCPCS: 80053; 80307; 81003; 85025; 86592

== ENCOUNTER 2017-01-02 22:42 | Emergency (ER) | payer SELFPAY ==
[~2017-01-02] VITALS: Ht 177.8 cm; Wt 90.7 kg
== END 2017-01-03 05:36 | disposition home or self-care (01) ==
LOC: CED 22:42
DX: F10.129 Alcohol abuse with intoxication, unspecified (principal); I10 Essential (primary) hypertension; F17.210 Nicotine dependence, cigarettes, uncomplicated
CPT/HCPCS: 99284

== ENCOUNTER 2017-01-04 23:29 | Emergency (ER) | payer SELFPAY ==
[~2017-01-04] VITALS: Ht 177.8 cm; Wt 90.7 kg
--- NOTE | ~2017-01-04 | CT71 ---
[facility] A Service of [facility] RADIOLOGY TEXT RESULTS PATIENT: JOHANNA AKBAR LOCATION: [facility] : 64 UNIT #: [id number] AGE: [address]: Jose Palma MD SEX: M ORDER DR: [id number] [id number] [facility]. [place], [place] [address] [id number] E MR#: [id number] Acc #: [id number] NAME: JOHANNA AKBAR : 1960 SEX: M STUDY DATE/TIME: 01/05/2017 0:21 UNIT: [facility] ROOM: STUDY DESCRIPTION: CT Head Wo Contrast Attending Physician: Jose Palma M.D. Ordering Physician: Scott Boo M.D. Primary Care Physician: No Primary Care Physician MEDICAL IMAGING REPORT This report is preliminary unless electronic signature is present EXAMINATION CT head without contrast. DATE 01/05/2017 HISTORY Intoxicated, fell tonight. Posterior head and neck pain. Lethargic. Hypertension. COPD. COMPARISON Noncontrast CT head, 12/03/2016. TECHNIQUE This CT exam was performed with one or more of the following radiation dose reduction techniques: automatic exposure control, adjustment of mA and/or kV according to patient size, and iterative reconstruction. FINDINGS No acute displaced calvarial fracture. Mastoid air cells and paranasal sinuses appear clear. No acute intracranial hemorrhage, mass lesion, mass effect or midline shift or evidence of acute or evolving infarct. Ventricular configuration within normal limits. IMPRESSION No acute intracranial findings. Dictated by... Sadie Be M.D. THIS IS AN ELECTRONICALLY VERIFIED REPORT Sadie Be M.D. at 01/05/2017 9:39 PM [facility] A Service of [facility] RADIOLOGY TEXT RESULTS PATIENT: JOHANNA AKBAR LOCATION: [facility] : 64 UNIT #: [id number] AGE: [address]: Jose Palma MD SEX: M ORDER DR: Nichole TD: 01/05/2017 16:45 JOB #: [id number] MEDICAL IMAGING REPORT Page 1 of 1 COPY
--- NOTE | ~2017-01-04 | CT52 ---
[facility] A Service of [facility] RADIOLOGY TEXT RESULTS PATIENT: JOHANNA AKBAR LOCATION: [facility] : 64 UNIT #: [id number] AGE: [address]: Jose Palma MD SEX: M ORDER DR: [id number] [facility] [address] [place], [place] [address] [id number] E MR#: [id number] Acc #: [id number] NAME: JOHANNA AKBAR : 1960 SEX: M STUDY DATE/TIME: 01/05/2017 0:29 UNIT: TRU[facility] ROOM: STUDY DESCRIPTION: CT Cervical Spine Wo Cont Attending Physician: Jose Palma M.D. Ordering Physician: Scott Boo M.D. Primary Care Physician: No Primary Care Physician MEDICAL IMAGING REPORT This report is preliminary unless electronic signature is present EXAM CT cervical spine without contrast, 01/05/2017. HISTORY Fell tonight with posterior head and neck pain. Intoxicated. Lethargic. COMPARISON CT cervical spine, 12/03/2016. PROCEDURE 2-mm noncontrast axial images through the cervical spine. Sagittal and coronal reformatted images were obtained. FINDINGS Craniocervical junction is intact. No acute cervical spine fracture or subluxation is seen. Multilevel degenerative changes are present without evidence of high-grade canal stenosis. IMPRESSION No acute cervical spine findings. Degenerative changes without high-grade canal stenosis. Dictated by... Sadie Be M.D. THIS IS AN ELECTRONICALLY VERIFIED REPORT Sadie Be M.D. at 01/05/2017 9:39 PM SHAN/betsy TD: 01/05/2017 16:47 JOB #: [id number] [facility] A Service [facility] RADIOLOGY TEXT RESULTS PATIENT: JOHANNA AKBAR LOCATION: [facility] : 64 UNIT #: [id number] AGE: [address]: Jose Palma MD SEX: M ORDER DR: MEDICAL IMAGING REPORT Page 1 of 1 COPY
[2017-01-05 00:53] LABS: CALCIUM SERUM 8.4 mg/dL (8.4-10.2); CREATININE SERUM 0.9 mg/dL (0.6-1.4); GLOM FILT RATE Estimated 96.5 mL/min (>60); POTASSIUM 3.6 mmol/L (3.5-5.1)
== END 2017-01-05 07:41 | disposition home or self-care (01) ==
LOC: CED 23:29
PROVIDERS: Emergency Medicine
DX: F10.129 Alcohol abuse with intoxication, unspecified (principal); F17.200 Nicotine dependence, unspecified, uncomplicated
CPT/HCPCS: 36415; 70450; 72125; 80048; 96365; 99285; G0480; J3411; J3475

== ENCOUNTER 2017-01-08 22:29 | Emergency (ER) | payer SELFPAY ==
[~2017-01-08] VITALS: Ht 193 cm; Wt 95.2 kg
== END 2017-01-09 06:47 | disposition home or self-care (01) ==
LOC: CED 22:29
DX: F10.10 Alcohol abuse, uncomplicated (principal); J44.9 Chronic obstructive pulmonary disease, unspecified; I10 Essential (primary) hypertension; F14.10 Cocaine abuse, uncomplicated; F17.200 Nicotine dependence, unspecified, uncomplicated
CPT/HCPCS: 99284

== ENCOUNTER 2017-01-10 14:59 | Emergency (ER) | payer SELFPAY ==
[~2017-01-10] VITALS: Ht 170.2 cm; Wt 113.4 kg
--- NOTE | ~2017-01-10 | CT71 ---
[facility] A Service of [facility] RADIOLOGY TEXT RESULTS PATIENT: JOHANNA AKBAR LOCATION: [facility] : 64 UNIT #: [id number] AGE: [address]: Rob Cross MD SEX: M ORDER DR: [id number] [facility] [address] [facility]. [place], [place] [address] [id number] E MR#: [id number] Acc #: [id number] NAME: JOHANNA AKBAR : 1960 SEX: M STUDY DATE/TIME: 01/10/2017 17:02 UNIT: [facility] ROOM: STUDY DESCRIPTION: CT Head Wo Contrast Attending Physician: Rob Cross M.D. Ordering Physician: Rob Cross M.D. MEDICAL IMAGING REPORT This report is preliminary unless electronic signature is present EXAM Head CT without contrast 01/10/2017 HISTORY Slurred speech. Patient found down outside of a car today. No known trauma to head and neck. Lethargy today. Hypertension. TECHNIQUE This CT exam was performed with one or more of the following radiation dose reduction techniques: automatic exposure control, adjustment of mA and/or kV according to patient size, and iterative reconstruction. FINDINGS Axial images of the brain obtained without contrast show generalized atrophy. There is no evidence of mass effect, hemorrhage, or edema and no midline shift is seen. No acute changes are noted. IMPRESSION Atrophy; otherwise, normal CT of the brain. Dictated by... Patrick Miner M.D. THIS IS AN ELECTRONICALLY VERIFIED REPORT Patrick Miner M.D. at 01/13/2017 6:08 AM BERNARD/zay TD: 01/10/2017 23:13 JOB #: [id number] MEDICAL IMAGING REPORT Page 1 of 1 COPY
--- NOTE | ~2017-01-10 | EKG ---
PATIENT: JOHANNA AKBAR UNIT #: [id number] Ventricular Rate: 49 BPM Atrial Rate: 49 BPM P-R Interval: 170 ms QRS Duration: 116 ms Q-T Interval: 458 ms QTC Calculation(Bezet): 413 ms P Kewadin: 75 degrees Calculated R Kewadin: 15 degrees Calculated T Kewadin: 23 degrees Diagnosis Line: Sinus bradycardia Diagnosis Line: Normal ECG Diagnosis Line: When compared with ECG of 01-OCT-2016 21:57, Diagnosis Line: No significant change was found Diagnosis Line: Confirmed by JOSE FRANCISCO FREEDMAN MD ([id number]) on 01/11/2017 Diagnosis Line: 8:41:01 AM INTERPRETING MD: TANO JETER
--- NOTE | ~2017-01-10 | CT52 ---
[facility] A Service of [facility] RADIOLOGY TEXT RESULTS PATIENT: JOHANNA AKBAR LOCATION: [facility] : 64 UNIT #: [id number] AGE: [address]: Rob Cross MD SEX: M ORDER DR: [id number] [facility] [address] [facility]. [place], [place] [address] [id number] E MR#: [id number] Acc #: [id number] NAME: JOHANNA AKBAR : 1960 SEX: M STUDY DATE/TIME: 01/10/2017 16:04 UNIT: [facility] ROOM: STUDY DESCRIPTION: CT Cervical Spine Wo Cont Attending Physician: Rob Cross M.D. Ordering Physician: Rob Cross M.D. MEDICAL IMAGING REPORT This report is preliminary unless electronic signature is present EXAM CT scan of the cervical spine without contrast 01/10/2017 HISTORY Neck pain status post fall today. Patient found down outside of the car today with lethargy. TECHNIQUE Spiral CT was performed through the cervical spine without intrathecal contrast administration as per clinician request. Sagittal and coronal reconstructions were then performed through the same region. This CT exam was performed with one or more of the following radiation dose reduction techniques: automatic exposure control, adjustment of mA and/or kV according to patient size, and iterative reconstruction. FINDINGS The exam is somewhat limited for determination of discogenic disease due to the lack of intrathecal contrast. Sagittal reconstructions demonstrate normal alignment of the cervical spine with a normal lordotic curve. There is degenerative change with mild disc space narrowing at C5-C6 and C6-C7. Marginal osteophytes are seen throughout the cervical spine. There is degenerative change involving articular facets. There is no retropharyngeal soft tissue swelling. IMPRESSION Degenerative change in the cervical spine. No CT evidence of cervical spine fracture. Dictated by... Patrick Miner M.D. [facility] A Service [facility] RADIOLOGY TEXT RESULTS PATIENT: JOHANNA AKBAR LOCATION: [facility] : 64 UNIT #: [id number] AGE: [address]: Rob Cross MD SEX: M ORDER DR: THIS IS AN ELECTRONICALLY VERIFIED REPORT Patrick Miner M.D. at 01/13/2017 6:08 AM KRT/pcl TD: 01/10/2017 23:16 JOB #: [id number] MEDICAL IMAGING REPORT Page 1 of 1 COPY
== END 2017-01-10 19:45 | disposition home or self-care (01) ==
LOC: CED 14:59
DX: F10.129 Alcohol abuse with intoxication, unspecified (principal); I10 Essential (primary) hypertension; J44.9 Chronic obstructive pulmonary disease, unspecified; F17.210 Nicotine dependence, cigarettes, uncomplicated; Y90.8 Blood alcohol level of 240 mg/100 ml or more
CPT/HCPCS: 36415; 70450; 72125; 93005; 99285; G0480

== ENCOUNTER 2017-01-15 20:37 | Emergency (ER) | payer SELFPAY ==
[~2017-01-15] VITALS: Ht 177.8 cm; Wt 111.1 kg
[2017-01-15 23:09] LABS: BASOPHIL% 0.2 % (0-2.5); DIFF IND YES; EOSINOPHIL# 0.3 X10e3 (0-0.7); HEMATOCRIT 38.9 % (38.0-50.0); HEMOGLOBIN 13.1 gm/dL (13.0-16.0); LYMPHOCYTE% 41.7 % (17.0-45.0); MEAN CELL VOLUME 102.5 FL (83-96); MEAN CORPUSCULAR HEMOGLOBIN 34.6 PG (28-34); MEAN CORPUSCULAR HGB CONC 33.8 g/dL (30-36); MEAN PLATELET VOLUME 8.3 FL (6.5-11.5); MONOCYTE# 0.6 X10e3 (0-1.0); NEUTROPHIL# 1.9 X10e3 (1.5-7.1); NEUTROPHIL% 39.1 % (40-75); PLATELET COUNT 98 X10e3 (140-420); RED CELL DISTRIBUTION WIDTH 14.4 % (11.0-15.5); WHITE BLOOD COUNT 4.9 X10e3 (4.0-10.5)
[2017-01-15 23:11] LABS: BUN/CREATININE RATIO 15.71; CALCIUM SERUM 8.6 mg/dL (8.4-10.2); CREATININE SERUM 0.7 mg/dL (0.6-1.4); POTASSIUM 3.7 mmol/L (3.5-5.1)
[2017-01-15 23:13] LABS: PLATELET ESTIMATE DECREASED (NORMAL)
[2017-01-15 23:14] LABS: ANISOCYTOSIS SL; DIFFERENTIAL COMMENT ATY.LYMPHSD
[2017-01-16 02:37] LABS: AMPHETAMINE NEG (NEG); BARBITURATES NEG (NEG); BENZODIAZEPINES POS (NEG); COCAINE POS (NEG); MARIJUANA NEG (NEG); OPIATES NEG (NEG); TRICYCLIC ANTIDEPRESSANTS NEG (NEG); U METHADONE NEG (NEG)
== END 2017-01-16 07:19 ==
LOC: CED 20:37
PROVIDERS: Emergency Medicine
DX: F10.229 Alcohol dependence with intoxication, unspecified (principal); Y90.8 Blood alcohol level of 240 mg/100 ml or more; F14.10 Cocaine abuse, uncomplicated; F19.10 Other psychoactive substance abuse, uncomplicated; I10 Essential (primary) hypertension; F17.210 Nicotine dependence, cigarettes, uncomplicated; Z86.19 Personal history of other infectious and parasitic diseases
CPT/HCPCS: 36415; 80048; 80307; 85025; 99285; G0480

== ENCOUNTER 2017-01-16 04:00 | Inpatient (IN) | payer MEDICARE ==
[~2017-01-16] VITALS: Ht 172.7 cm; Wt 101.6 kg
--- NOTE | ~2017-01-16 | DS ---
Unit #: [id number] #: [id number] Patient: JOHANNA KEATING [id number] [facility] [address] [place] [address] [id number] I MR#: [id number] NAME: JOHANNA KEATING ROOM: [facility] Age: 56 Sex: M Admission Date: 01/16/2017 : 1960 Discharge Date: 01/20/2017 Attending Physician: Javier Moss M.D. DISCHARGE SUMMARY REASON FOR ADMISSION Mr. Keating is a 56-year-old man, who reports he has been "drinking and drugging" and had suicidal ideation with a plan to walk into traffic. He was admitted for detox and further assessment. LABORATORY DATA Please see hospital chart. HOSPITAL COURSE The patient was admitted and placed on the alcohol detox protocol. He had an uneventful period of detox and participated only briefly in psychotherapy groups and activities. Urine toxicology also indicated the use of cocaine. His history and physical examination was unremarkable for acute problems. On the date of discharge, he reported "just need to get out of here" and denied suicidal ideation, intent, or plan. DISCHARGE DIAGNOSES AXIS I: Alcohol dependence with withdrawal, alcohol-induced mood disorder. AXIS II: No diagnosis. AXIS III: Chronic obstructive pulmonary disease, hypertension, and hepatitis C. AXIS IV: AXIS V: DISCHARGE INSTRUCTIONS The patient is to follow up with primary care physician in [facility] program. DISCHARGE MEDICATIONS None. CONDITION AT DISCHARGE Fair. PROGNOSIS Fair. DIET AND ACTIVITY Ad harrison. Unit #: [id number] #: [id number] Patient: JOHANNA KEATING Dictated by... Javier Moss M.D. [facility]/lj TD: 01/22/2017 08:47 JOB #: [id number] DISCHARGE SUMMARY Page 1 of 1 X Javier Moss MD X DISCHARGE SUMMARY
--- NOTE | ~2017-01-16 | HP ---
Unit #: [id number] #: [id number] Patient: JOHANNA AKBAR [id number] [place] [address] [id number] MR#: [id number] NAME: JOHANNA AKBAR ROOM: [facility] Age: 56 Sex: M Admission Date: 01/16/2017 : 1960 Attending Physician: Javier Moss M.D. Admitting Physician: Javier Moss M.D. Primary Care Physician: Primary Care Physician No HISTORY AND PHYSICAL HISTORY OF PRESENT ILLNESS Johanna is a 56 year old admitted to [facility] because of his continued poly substance abuse. PAST MEDICAL HISTORY 1. Long history of illicit substance abuse to include IV drugs. 2. Alcohol abuse. 3. History of withdrawal seizures. 4. Hepatitis C. 5. High blood pressure. 6. Hyperlipidemia. PAST SURGICAL HISTORY 1. Right knee. 2. 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 ALLERGIES No known drug allergies. SOCIAL HISTORY He does not smoke. Drinks alcohol frequently. Has a long history of illicit substance abuse to include IV drugs. FAMILY HISTORY Medically noncontributory. REVIEW OF SYSTEMS CONSTITUTIONAL: No fever or chills. HEENT: Denies any sore throat, ear pain or runny nose. CARDIOVASCULAR: Denies chest pain, irregular heart rhythm or palpitations. CHEST: Denies shortness of breath or cough. No hemoptysis. GASTROINTESTINAL: Denies nausea, vomiting, diarrhea or chronic constipation. ENDOCRINE: Denies history of increased thirst or urination. No recent significant weight loss or gain. GENITOURINARY: Denies dysuria, frequency, or hematuria. SKIN: Denies any rashes. HEMATOLOGIC: Denies history of increased bleeding or bruising. MUSCULOSKELETAL: Denies any hot, swollen joints. No generalized muscle pain. NEUROLOGIC: Denies problems with vision or speech. No frequent, severe headaches. No numbness, tingling or weakness in any extremities. Denies Unit #: [id number] #: [id number] Patient: JOHANNA AKBAR loss of bladder or bowel control. CURRENT MEDICATIONS Detox protocol PHYSICAL EXAMINATION GENERAL: Alert, well-nourished, in no apparent distress. VITAL SIGNS: Blood pressure 150/88, heart rate 80, respirations 16, temperature 98.6. WEIGHT: 224. HEIGHT: 5 foot 8 inches. SKIN: Warm and dry without rash or lesion. HEENT: Normocephalic. TMs not viewed. Oral and nasal passages clear. Conjunctivae clear. Pupils equal, round and reactive to light and accommodation. Extraocular movements intact. NECK: Supple without lymphadenopathy or thyromegaly. HEART: Regular rate and rhythm without murmur. LUNGS: Clear. ABDOMEN: Soft, nontender. : Not done. EXTREMITIES: No evidence of cyanosis, clubbing or edema. Moves all extremities without focal deficit. NEUROLOGICAL: Grossly within normal limits. Cranial Nerves: II: Visual pantoja are intact. III, IV AND : Extraocular movements are intact. Pupils are equal, round and reactive to light. V: Facial sensation is grossly normal. VII: Facial movements and expression are normal. VIII: Auditory acuity grossly intact. IX, X: Uvula is midline. Phonation is normal. XI: Patient shrugs shoulders and turns head normally. XII: Tongue protrudes in the midline. Sensory and Motor Function: Sensory and motor sensation is grossly normal. Motor: moves all extremities well. Coordination: Gait is normal. Deep Tendon Reflexes: Intact. IMPRESSION Psychiatric admission. RECOMMENDATIONS PSYCHIATRIC: Per psychiatrist. MEDICAL: I see no contraindications to participating in facility's activities. MEDICAL PROGNOSIS Good. MEDICAL CONDITION Stable. Dictated by... Kalin EscobarAYaya-Crystal. for Charity Carroll/stan Unit #: [id number] #: [id number] Patient: JOHANNA AKBAR TD: 01/17/2017 01:10 JOB #: [id number] HISTORY AND PHYSICAL Page 1 of 1 X Claudette Brower X HISTORY AND PHYSICAL
--- NOTE | ~2017-01-16 | PA ---
Unit #: [id number] #: [id number] Patient: JOHANNA KEATING [id number] [facility] [address] [place] [address] [id number] MR#: [id number] NAME: JOHANNA KEATING ROOM: [facility] Age: 56 Sex: M Admission Date: 01/16/2017 : 1960 Date of Assessment: 01/17/2017 Attending Physician: Javier Moss M.D. Admitting Physician: Javier Moss M.D. Primary Care Physician: Primary Care Physician No PSYCHIATRIC ASSESSMENT DATE OF SERVICE 01/17/2017. INFORMANTS The patient reliable; [facility], reliable; [facility]. [facility]. CHIEF COMPLAINT Alcohol dependence. HISTORY OF PRESENT ILLNESS Johanna Keating is a 56-year-old man who reports he has been "drinking and drugging" and cannot take it anymore. He was suicidal with a plan to walk into traffic and could not contract for safety. He was readmitted for detox and further assessment. PAST PSYCHIATRIC HISTORY Last admission was in 12/2016 under the care of Dr. Smith. He is not on any current treatment plan or seeing a psychiatrist. Otherwise, he has been to [facility] and [facility] in the past. FAMILY PSYCHIATRIC HISTORY None reported. SOCIAL HISTORY The patient is single, unemployed with poor social support system and is currently homeless. PAST MEDICAL HISTORY Significant for hypertension and COPD. MEDICATIONS Please see MAR. ALLERGIES No known medication allergies. SUBSTANCE USE HISTORY As noted above. The patient has extensive history of cannabis, alcohol, and cocaine abuse. MENTAL STATUS EXAMINATION The patient presented as a disheveled man, appearing older than his stated age. He was irritable, but cooperative with the examination. Speech was Unit #: [id number] #: [id number] Patient: JOHANNA KEATING spontaneous and easily understood. Musculoskeletal examination was calm. His mood was irritable with a congruent affect. He was alert and fully oriented. His memory and concentration were intact. Thought processes were goal directed with no active psychosis. He denied suicidal ideation, intent, or plan, but could not contract for safety outside the hospital. Despite this, insight and judgment, fair. Fund of knowledge and abstraction, fair. ASSETS AND LIABILITIES Assets; the patient knows local resources and presents voluntarily for treatment. Liabilities; include chronic hospitalization, long-term alcohol use. ADMITTING DIAGNOSES AXIS I: Alcohol dependence with withdrawal, uncomplicated, F10.230; alcohol-induced mood disorder. AXIS II: No diagnosis. AXIS III: Chronic obstructive pulmonary disease and hypertension. AXIS IV: AXIS V: PSYCHIATRIC PLAN The patient was admitted and placed on the alcohol detox protocol. His home medications will be confirmed and restarted as appropriate. Physical examination and laboratory studies will be ordered and reviewed. TREATMENT GOALS Resolution of intoxication, improvement in insight, and improvement in coping skills. DISCHARGE PLANNING Follow up with [facility]. ESTIMATED LENGTH OF STAY 5 days. Dictated by... Javier Moss M.D. DAYNE/lj TD: 01/20/2017 13:01 JOB #: [id number] PSYCHIATRIC ASSESSMENT Page 1 of 1 X Javier Moss MD X PSYCHIATRIC ASSESSMENT
--- NOTE | ~2017-01-16 | PN ---
Unit #: [id number] #: [id number] Patient: JOHANNA AKBAR [id number] [facility] [address] [place] [address] [id number] I MR#: [id number] NAME: JOHANNA AKBAR ROOM: [facility] Age: 56 Sex: M Admission Date: 01/16/2017 : 1960 Attending Physician: Javier Moss M.D. Admitting Physician: Javier Moss M.D. Primary Care Physician: Primary Care Physician No [facility] PROGRESS NOTES DATE OF SERVICE 01/18/2017 DISCUSSION Johanna continues to be actively detoxing this morning. His mood is irritable with a congruent affect. He is alert and fully oriented with no active psychosis or SI. ASSESSMENT Alcohol dependence. PLAN Continue detox protocol. Dictated by... Charity Gonsalez/stan TD: 01/22/2017 21:03 JOB #: [id number] [facility] PROGRESS NOTES Page 1 of 1 X Javier Moss MD X PROGRESS NOTE
[2017-01-17 09:36] LABS: URINE APPEARANCE CLEAR; URINE BILIRUBIN NEG (NEG); URINE BLOOD NEG (NEG); URINE COLOR DK YELLOW; URINE GLUCOSE NEG (NEG); URINE KETONE NEG (NEG); URINE LEUKOCYTE ESTERASE NEG (NEG); URINE NITRATE NEG (NEG); URINE PROTEIN NEG (NEG); URINE SPECIFIC GRAVITY 1.016 (1.003-1.035)
[2017-01-17 10:18] LABS: AMPHETAMINE NEG (NEG); BARBITURATES NEG (NEG); BENZODIAZEPINES POS (NEG); COCAINE POS (NEG); MARIJUANA NEG (NEG); OPIATES NEG (NEG); TRICYCLIC ANTIDEPRESSANTS NEG (NEG); U METHADONE NEG (NEG)
== END 2017-01-20 13:55 | disposition home or self-care (01) | DRG 897 ==
LOC: P1E 08:11
PROVIDERS: Psychiatry & Neurology Psychiatry
PROC: HZ2ZZZZ Detoxification Services for Substance Abuse Treatment (ICD-10-PCS; principal; 2017-01-16)
DX: F10.230 Alcohol dependence with withdrawal, uncomplicated (principal); F10.24 Alcohol dependence with alcohol-induced mood disorder; I10 Essential (primary) hypertension; J44.9 Chronic obstructive pulmonary disease, unspecified; E78.5 Hyperlipidemia, unspecified; Z86.19 Personal history of other infectious and parasitic diseases; Z89.422 Acquired absence of other left toe(s)
CPT/HCPCS: 80307; 81003

== ENCOUNTER 2017-02-14 14:24 | Emergency (ER) | payer MEDICARE ==
[~2017-02-14] VITALS: Ht 177.8 cm; Wt 90.7 kg
--- NOTE | ~2017-02-14 | CT71 ---
[facility] A Service [facility] RADIOLOGY TEXT RESULTS PATIENT: JOHANNA AKBAR LOCATION: [facility] : [birth year] UNIT #: [id number] AGE: [address]: Jose Palma MD SEX: M ORDER DR: [id number] [address] [address] [id number] E MR#: [id number] Acc #: [id number] NAME: JOHANNA AKBAR : 1960 SEX: M STUDY DATE/TIME: 02/14/2017 15:55 UNIT: [id number] ROOM: STUDY DESCRIPTION: CT Head Wo Contrast Attending Physician: Jose Palma M.D. Ordering Physician: Scott Boo M.D. Primary Care Physician: No Primary Care Physician MEDICAL IMAGING REPORT This report is preliminary unless electronic signature is present EXAM CT scan of the head without contrast INDICATION Headache today. The patient was found down. Lethargy. COMPARISON STUDIES 01/10/17. TECHNIQUE Axial noncontrast images were obtained from the skull base to the vertex. This CT exam was performed with one or more of the following radiation dose reduction techniques: automatic exposure control, adjustment of mA and/or kV according to patient size, and iterative reconstruction. FINDINGS Ventricular size and configuration are normal. There is no evidence of acute infarct or hemorrhage. There are no extraaxial fluid collections. No mass lesion or mass effect is seen. There are no skull fractures. IMPRESSION Normal noncontrast head CT. Dictated by... Chandler Matos M.D. THIS IS AN ELECTRONICALLY VERIFIED REPORT Chandler Matos M.D. at 02/15/2017 9:06 AM FEL/lucia [facility] A Service [facility] RADIOLOGY TEXT RESULTS PATIENT: JOHANNA AKBAR LOCATION: [facility] : 64 UNIT #: [id number] AGE: [address]: Jose Palma MD SEX: M ORDER DR: TD: 02/14/2017 23:51 JOB #: [id number] MEDICAL IMAGING REPORT Page 1 of 1 COPY
== END 2017-02-14 19:24 | disposition home or self-care (01) ==
LOC: CED 14:24
DX: F10.10 Alcohol abuse, uncomplicated (principal); J44.9 Chronic obstructive pulmonary disease, unspecified; F17.200 Nicotine dependence, unspecified, uncomplicated
CPT/HCPCS: 70450; 99283

== ENCOUNTER 2017-02-20 21:31 | Emergency (ER) | payer MEDICARE ==
[~2017-02-20] VITALS: Ht 182.9 cm; Wt 90.7 kg
== END 2017-02-21 01:51 | disposition left against medical advice (07) ==
LOC: CED 21:31
DX: Z53.21 Procedure and treatment not carried out due to patient leaving prior to being seen by health care provider (principal)